=== PATIENT | female | born 1975 | race Caucasian/White ===

== ENCOUNTER 2017-05-20 01:09 | Emergency (ER) | payer OTHER ==
[~2017-05-20] VITALS: Ht 157.5 cm; Wt 59.9 kg
[2017-05-20] MEDS ORDERED: LITHIUM CARBON300 MG PO (02:40)
[2017-05-20] MEDS ORDERED: ONDANSETRON ODT8 MG PO (17:38)
== END 2017-05-20 17:57 | disposition home or self-care (01) ==
LOC: ED 01:09
DX: R45.851 Suicidal ideations (principal); F31.9 Bipolar disorder, unspecified; F17.200 Nicotine dependence, unspecified, uncomplicated; Z90.49 Acquired absence of other specified parts of digestive tract; Z98.51 Tubal ligation status; Z98.890 Other specified postprocedural states; Z88.5 Allergy status to narcotic agent; Z79.899 Other long term (current) drug therapy
CPT/HCPCS: 80053; 80176; 81001; 84443; 84703; 85025; 99283; G0480

== ENCOUNTER 2017-08-10 14:42 | Emergency (ER) | payer OTHER ==
[~2017-08-10] VITALS: Ht 157.5 cm; Wt 59.9 kg
--- OUTSIDE RECORDS SUMMARY | ~2017-08-10 | XMS | Encounter Summary ---
Demographics + + + | Address | [address] | | | [place] [address] | + + + | Home Phone | | + + + | Preferred Language | Unknown | + + + | Marital Status | Unknown | + + + | Baptist Affiliation | 1041 | + + + | Race | Unknown | + + + | Ethnic Group | Unknown | + + + Author + + + | Author | [facility] | | | and [place] | + + + | Organization | [facility] | | | and [place] | + + + | Address | Unknown | + + + | Phone | Unavailable | + + + Support + + +---------+ + | Name | Relationship | Address | Phone | + + +---------+ + | Sammy Harper | ECON | Unknown | | + + +---------+ + Care Team Providers + +------+ + | Care Monitor Tech Name | Role | Phone | + +------+ + | Radha Ward | PCP | | + +------+ + Reason for Referral Diagnostic/Screening (Routine) +--------+--------+ + + + + | Status | Reason | Specialty | Diagnoses / | Referred By | Referred To | | | | | Procedures | Contact | Contact | +--------+--------+ + + + + | Closed | | Radiology | Diagnoses | [facility] | [facility] | | | | | Breast pain | [place] | Ultrasound | | | | | Procedures | [address] | [address] | | | | | US Breast | [address] | [place], | | | | | Limited | [place], | [place] | | | | | Right | [place] [address] | [address] | | | | | | Phone: | Phone: | | | | | | [phone] | [phone] | | | | | | Fax: | Fax: | | | | | | [phone] | [phone] | +--------+--------+ + + + + Encounter Details +--------+ + + + + | Date | Type | Department | Care Team | Description | +--------+ + + + + | 06/02/ | Ancillary | [facility] | Radha Ward, | Breast pain | | 2018 | Orders | MED CTR XRAY [address] | [place] [address] | | | | | [place] | [place] [address] | | | | | [place] [address] | [phone] | | | | | [phone] | | | +--------+ + + + + Social History + +-------+ +--------+------+ | Tobacco Use | Types | Packs/Day | Years | Date | | | | | Used | | + +-------+ +--------+------+ | Never Assessed | | | | | + +-------+ +--------+------+ + + + | Sex Assigned at | Date Recorded | | | | + + + | Not on file | | + + + as of this encounter Plan of Treatment Not on fileas of this encounter Results US Breast Limited Right (06/20/2017 1030) + + | Narrative | + + | RIGHT BREAST ULTRASOUND 06/02/2017 12:00 AM CLINICAL HISTORY: Lateral and | | subareolar right breast pain and itching for several months. | | COMPARISON: Digital screening mammogram April 2017 and 2014 FINDINGS: | | Sonographic interrogation of the subareolar right breast and lateral breast identifies | | no suspicious mass or tissue distortion. Dense-appearing parenchymal islands are | | present in the lateral breast along with a small structure consistent with a benign | | lymph node, positioned at the 9:00 radiant, 8 cm from the nipple and measuring up to | | 3.5 mm long axis and 2.8 mm short axis. IMPRESSION - 1. BIRADS 2, BENIGN. | | RECOMMENDATION: CLINICAL FOLLOW-UP OF THE PATIENT'S RIGHT BREAST SYMPTOMS WITH | | CONSIDERATION FOR FOLLOW-UP IMAGING IF SYMPTOMS PROGRESS OR BECOME MORE | | LOCALIZED. OTHERWISE RECOMMEND ANNUAL SCREENING MAMMOGRAPHY. These findings and | | recommendations were discussed personally with the patient at the time of the exam on | | June 20, 2017. Dictated and Signed by: Mason Keating MD Electronically | | signed: 06/20/2017 10:39 AM | + + + + | Procedure Note | + + | Abhishek, Rad Results In - 06/20/2017 1042 PST RIGHT BREAST ULTRASOUND 06/02/2017 12:00 AM | | | | CLINICAL HISTORY: Lateral and subareolar right breast pain and itching for | | several months. | | | | COMPARISON: Digital screening mammogram April 2017 and 2014 | | | | FINDINGS: Sonographic interrogation of the subareolar right breast and lateral | | breast identifies no suspicious mass or tissue distortion. Dense-appearing | | parenchymal islands are present in the lateral breast along with a small | | structure consistent with a benign lymph node, positioned at the 9:00 radiant, 8 | | cm from the nipple and measuring up to 3.5 mm long axis and 2.8 mm short axis. | | | | IMPRESSION - | | 1. BIRADS 2, BENIGN. | | | | RECOMMENDATION: CLINICAL FOLLOW-UP OF THE PATIENT'S RIGHT BREAST SYMPTOMS WITH | | CONSIDERATION FOR FOLLOW-UP IMAGING IF SYMPTOMS PROGRESS OR BECOME MORE | | LOCALIZED. OTHERWISE RECOMMEND ANNUAL SCREENING MAMMOGRAPHY. | | | | These findings and recommendations were discussed personally with the patient at | | the time of the exam on June 20, 2017. | | | | Dictated and Signed by: Mason Keating MD | | Electronically signed: 06/20/2017 10:39 AM | + + in this encounter Visit Diagnoses + + | Diagnosis | + + | Breast pain | + + | Mastodynia | + +"
--- OUTSIDE RECORDS SUMMARY | ~2017-08-10 | XMS | Clinical Summary ---
Demographics + + + | Address | [address] | | | [place] [address] | + + + | Home Phone | | + + + | Preferred Language | Unknown | + + + | Marital Status | Unknown | + + + | Yazdanism Affiliation | 1041 | + + + | Race | Unknown | + + + | Ethnic Group | Unknown | + + + Author + + + | Author | [facility] | | | and [place] | + + + | Organization | [facility] | | | and [place] | + + + | Address | Unknown | + + + | Phone | Unavailable | + + + Support + + +---------+ + | Name | Relationship | Address | Phone | + + +---------+ + | Sammy Harepr | ECON | Unknown | | + + +---------+ + Care Team Providers + +------+ + | Care Metal Door Assembler Name | Role | Phone | + +------+ + | Radha Ward | PP | | + +------+ + Allergies Not on File Current Medications Not on file Active Problems Not on file Encounters +--------+ + + + + | Date | Type | Specialty | Care Team | Description | +--------+ + + + + | 06/20/ | Hospital | | Radha Ward, | Breast pain | | 2018 | Encounter | | Abiola Johns | | | | | | L, Technologist | | | | | | [place] | | +--------+ + + + + | 06/02/ | Ancillary | | Radha Ward, | Breast pain | | 2018 | Orders | | [place] | | +--------+ + + + + from Last 3 Months Social History + +-------+ +--------+------+ | Tobacco [...] on file | | + + + Plan of Treatment + + + + + | Health Maintenance | Due Date | Last Done | Comments | + + + + + | CERVICAL CANCER | | | | | SCREENING (PAP EVERY | 4 | | | | 3 YEARS 21-64 ) | | | | + + + + + | Vaccine: | | 08/14/2014 | | | Dtap/Tdap/Td (2 - | 5 | | | | Td) | | | | + + + + + | Vaccine: Influenza | Completed | 03/28/2017 | | + + + + + Results US Breast Limited Right (06/20/2017 1030) [...] signed: 06/20/2017 10:39 AM | + + from Last 3 Months Insurance + +--------+ +--------+ +---------+ | Payer | Benefi | Subscriber | Type | Phone | Address | | | t Plan | ID | | | | | | / | | | | | | | Group | | | | | + +--------+ +--------+ +---------+ | [employer] | MOD[employer] | [id number] | Medica | [phone] | | | MEDICAID HMO | HEALTH | | id | [id number] | | | | [place] | | | | | | | [place] | | | | | + +--------+ +--------+ +---------+ + +--------+ +--------+ + + | Guarantor Name | Accoun | Relation to | Date | Phone | Billing Address | | | t Type | Patient | of | | | | | | | | | | + +--------+ +--------+ + + | NGUYEN MART | Person | Self [birth year] | Home: | [address] | | | [place] | | 1975 | [phone] | [place] | | | [place] | | [phone] | + +--------+ +--------+ + +"
--- OUTSIDE RECORDS SUMMARY | ~2017-08-10 | XMS | Clinical Summary ---
Demographics + + + | Address | [address] | | | [place] [address] | + + + | Home Phone | | + + + | Preferred Language | Unknown | + + + | Marital Status | Unknown | + + + | Confucianist Affiliation | 1041 | + + + | Race | Unknown | + + + | Ethnic Group | Unknown | + + + Author + + + | Author | [facility] | | | and [place] | + + + | Organization | [facility] | | | and [...] Team Providers + +------+ + | Care Blacktop Paver Operator Name | Role | Phone | + [...] | [employer] | xxxxxxxx | Medica | [phone] | | | MEDICAID HMO | HEALTH [...] | Self | [birth year] | Home: | [address] | | | [place] | | 1975 | [phone] | [place] | | | [place] | | | [phone] | + +--------+ +--------+ + +"
--- OUTSIDE RECORDS SUMMARY | ~2017-08-10 | XMS | Encounter Summary ---
Demographics + + + | Address | [address] | | | [place] [address] | + + + | Home Phone | | + + + | Preferred Language | Unknown | + + + | Marital Status | Unknown | + + + | Holiness Affiliation | 1041 | + + + | Race | Unknown | + + + | Ethnic Group | Unknown | + + + Author + + + | Author | [facility] | | | and [place] | + + + | Organization | [facility] | | | and [place] [...] Team Providers + +------+ + | Care Planting Material Unloader Name | Role | Phone | + [...] Procedures | [address] | [address] | | | | | US Breast | [address] | [place], | | | | | Limited | [place], | [place] | | | | | Right | [place] [address] | [address] | | | | | | Phone: | Phone: | | | | | | [phone] | [phone] | | | | | | Fax: | Fax: | | | | | | [phone] | [phone] | +--------+--------+ + + + + Diagnostic/Screening (Routine) +--------+--------+ + + + + | Status | Reason | Specialty | Diagnoses / | Referred By | Referred To | | | | | Procedures | Contact | Contact | +--------+--------+ + + + + | Closed | | Radiology | Diagnoses | [place], | [facility] | | | | | Breast pain | [place] | Ultrasound | | | | | Procedures | [address] | [address] | | | | | US Breast | [address] | [place], | | | | | Limited | [place], | [place] | | | | | Right | [place] [address] | [address] | | | | | | Phone: | Phone: | | | | | | [phone] | [phone] | | | | | | Fax: | Fax: | | | | | | [phone] | [phone] | +--------+--------+ + + + + Reason for Visit Diagnostic/Screening (Routine) +--------+--------+ + + + + | Status | Reason | Specialty | Diagnoses / | Referred By | Referred To | | | | | Procedures | Contact | Contact | +--------+--------+ + + + + | Closed | | Radiology | Diagnoses | [place], | [facility] | | | | | Breast pain | JOSH Garcia | Ultrasound | | | | | Procedures | [address] | [address] | | | | | US Breast | [address] | [place], | | | | | Limited | [place], | [place] | | | | | Right | [place] [address] | [address] | | | | | | Phone: | Phone: | | | | | | [phone] | [phone] | | | | | | Fax: | Fax: | | | | | | [phone] | [phone] | +--------+--------+ + + + + Encounter Details +--------+ + + + + | Date | Type | Department | Care Team | Description | +--------+ + + + + | 06/20/ | Hospital | [facility] | Radha Ward, | Breast pain | | 2018 | Encounter | MED CTR ULTRASOUND | [place] [address] | | | | | [address] | [place] [address] | | | | | [place], [place] | [phone] | | | | | [address] | | | | | | [phone] | Abiola Monroe, | | | | | | Technologist Kg, | | | | | | [facility] | | +--------+ + + + [...] Not on fileas of this encounter Results Breast Limited Right (06/20/2017 1030) + + [...]
--- OUTSIDE RECORDS SUMMARY | ~2017-08-10 | XMS | Encounter Summary ---
Demographics + + + | Address | [address] | | | [place] [address] | + + + | Home Phone | | + + + | Preferred Language | Unknown | + + + | Marital Status | Unknown | + + + | Religion Affiliation | 1041 | + + + | Race | Unknown | + + + | Ethnic Group | Unknown | + + + Author + + + | Author | [facility] | | | and [place] | + + + | Organization | [facility] | | | and [...] Team Providers + +------+ + | Care Surgical Services Asst Name | Role | Phone | + [...] Procedures | [address] | [address] | | | | | US Breast | [address] | [place], | | | | | Limited | [place], | [place] | | | | | Right | [place] [address] | [address] | | | | | | Phone: | Phone: | | | | | | [phone] | [phone] | | | | | | Fax: | Fax: | | | | | | [phone] | [phone] | +--------+--------+ + + + + Encounter [...] [address] | | | | | [place] | [place] [address] | | | | | [place] [address] | [phone] | | | | | [phone] | | | +--------+ + + + [...]
--- OUTSIDE RECORDS SUMMARY | ~2017-08-10 | XMS | Encounter Summary ---
Demographics + + + | Address | [address] | | | [place] [address] | + + + | Home Phone | | + + + | Preferred Language | Unknown | + + + | Marital Status | Unknown | + + + | Worship Affiliation | 1041 | + + + | Race | Unknown | + + + | Ethnic Group | Unknown | + + + Author + + + | Author | [facility] | | | and [place] | + + + | Organization | [facility] | | | and [place] [...] Team Providers + +------+ + | Care Agency Director Name | Role | Phone | + [...] | | | | Breast pain | [place] | Ultrasound | | | | | Procedures | [address] | [address] | | | | | US Breast | [address] | [place], | | | | | Limited | [place], | [place] | | | | | Right | [place] [address] | [address] | | | | | | Phone: | Phone: | | | | | | [phone] | [phone] | | | | | | Fax: | Fax: | | | | | | [phone] | [phone] | +--------+--------+ + + + + Diagnostic/Screening (Routine) +--------+--------+ + + + + | Status | Reason | Specialty | Diagnoses / | Referred By | Referred To | | | | | Procedures | Contact | Contact | +--------+--------+ + + + + | Closed | | Radiology | Diagnoses | [place], | [facility] | | | | | Breast pain | [place] | Ultrasound | | | | | Procedures | [address] | [address] | | | | | US Breast | [address] | [place], | | | | | Limited | [place], | [place] | | | | | Right | [place] [address] | [address] | | | | | | Phone: | Phone: | | | | | | [phone] | [phone] | | | | | | Fax: | Fax: | | | | | | [phone] | [phone] | +--------+--------+ + + + + Reason for Visit Diagnostic/Screening (Routine) +--------+--------+ + + + + | Status | Reason | Specialty | Diagnoses / | Referred By | Referred To | | | | | Procedures | Contact | Contact | +--------+--------+ + + + + | Closed | | Radiology | Diagnoses | [place], | [facility] | | | | | Breast pain | JOSH Garcia | Ultrasound | | | | | Procedures | [address] | [address] | | | | | US Breast | [address] | [place], | | | | | Limited | [place], | [place] | | | | | Right | [place] [address] | [address] | | | | | | Phone: | Phone: | | | | | | [phone] | [phone] | | | | | | Fax: | Fax: | | | | | | [phone] | [phone] | +--------+--------+ + + + + Encounter Details +--------+ + + + + | Date | Type | Department | Care Team | Description | +--------+ + + + + | 06/20/ | Hospital | [facility] | Radha Ward, | Breast pain | | 2018 | Encounter | MED CTR ULTRASOUND | [place] [address] | | | | | [address] | [place] [address] | | | | | [place], [place] | [phone] | | | | | [address] | | | | | | [phone] | Abiola Monroe, | | | | | | Technologist Kg, | | | | | | [facility] | | +--------+ + + + [...]
[~2017-08-10 14:42] MED LIST: LITHIUM CARBON300 MG PO; ONDANSETRON ODT8 MG PO
[2017-08-10] MEDS ORDERED: ZOLOFT25 MG PO (16:16)
== END 2017-08-11 16:14 | disposition home or self-care (01) ==
LOC: ED 14:42
DX: S61.512A Laceration without foreign body of left wrist, initial encounter (principal); F31.9 Bipolar disorder, unspecified; Z88.5 Allergy status to narcotic agent; Z79.899 Other long term (current) drug therapy; X78.1XXA Intentional self-harm by knife, initial encounter
CPT/HCPCS: 36415; 80053; 80176; 80178; 81001; 84443; 84703; 85025; 99283; G0480